=== PATIENT | female | born 1980 | race Caucasian/White ===

== ENCOUNTER 2018-05-25 15:00 | Outpatient (RCR) | payer BC | END 2018-05-25 15:30 | disposition home or self-care (01) | LOC: PT 15:00 | DX: M79.672 Pain in left foot (principal) ==

== ENCOUNTER → 2019-02-07 | Outpatient (CLI) | payer BC | LOC: RAD 02-06 14:46 | DX: M54.9 Dorsalgia, unspecified (principal); R39.15 Urgency of urination | CPT/HCPCS: Q9967 ==

== ENCOUNTER → 2019-12-26 | Outpatient (CLI) | payer BC | LOC: RAD 16:50 | DX: D72.829 Elevated white blood cell count, unspecified (principal); R10.31 Right lower quadrant pain | CPT/HCPCS: Q9967 ==

== ENCOUNTER → 2020-01-30 | Outpatient (CLI) | payer BC ==
[2020-01-30 10:46] LABS: EOS # 0.4 (0.04-0.40); EOS % 3.3 % (1.0-5.0); HEMATOCRIT 40.1 % (37.0-47.0); HEMOGLOBIN 12.6 g/dL (12.5-16.0); LYMPH# 3.1 (1.50-4.00); MEAN CELL VOLUME 83 fl (78-100); MEAN CORPUSCULAR HEMOGLOBIN 26 pg (27-31); MEAN CORPUSCULAR HGB CONC 31 g/dL (33-37); MEAN PLATELET VOLUME 9.2 fl (7.4-10.4); MONO # 0.7 (0.20-0.80); NEU # 6.6 (1.40-6.50); PLATELET COUNT 432 K/mm3 (130-400); RED BLOOD COUNT 4.83 M/mm3 (4.10-5.30); RED CELL DISTRIBUTION WIDTH 16.5 % (11.5-14.5); WHITE BLOOD COUNT 10.8 K/mm3 (4.8-10.8)
== END ==
LOC: LAB 10:31
PROVIDERS: Family Medicine
DX: D72.829 Elevated white blood cell count, unspecified (principal)

== ENCOUNTER → 2020-02-26 | Outpatient (CLI) | payer BC ==
[2020-02-26 10:37] LABS: ALBUMIN 3.8 g/dL (3.5-5.0); POTASSIUM 4.1 mmol/L (3.5-5.1)
[2020-02-26 10:38] LABS: CALCIUM 8.8 mg/dL (8.3-10.5)
[2020-02-26 10:41] LABS: TOTAL BILIRUBIN 0.4 mg/dL (0.2-1.2)
[2020-02-26 21:05] LABS: HEPATITIS C ANTIBODY Negative (Negative)
== END ==
LOC: RAD 09:42
PROVIDERS: Internal Medicine Gastroenterology
DX: K76.89 Other specified diseases of liver (principal)

== ENCOUNTER → 2020-07-30 | Outpatient (CLI) | payer BC | LOC: RAD 08:30 | DX: K76.9 Liver disease, unspecified (principal) | CPT/HCPCS: A9585 ==

== ENCOUNTER → 2020-11-05 | Outpatient (CLI) | payer BC | LOC: LAB 10:27 | DX: D72.829 Elevated white blood cell count, unspecified (principal); D50.9 Iron deficiency anemia, unspecified; Z20.822 Contact with and (suspected) exposure to COVID-19 ==

== ENCOUNTER 2023-05-20 08:00 | Outpatient (RCR) | payer BC | END 2023-06-10 | disposition home or self-care (01) | LOC: PT | DX: M54.50 Low back pain, unspecified (principal); M25.551 Pain in right hip ==